=== PATIENT | female | born 1965 | race Caucasian/White ===

== ENCOUNTER → 2020-06-27 08:06 | Outpatient (BNVA) | payer OTHER, SELFPAY | PROVIDERS: PCP Nurse Practitioner Family; Referring Provider Nurse Practitioner Family; Visit Provider Physician Assistant | DX: E66.9 Obesity, unspecified (principal); Z68.31 Body mass index [BMI] 31.0-31.9, adult | CPT/HCPCS: 99214 ==

== ENCOUNTER 2020-08-07 12:25 | Outpatient (REF) | payer OTHER, SELFPAY | END 2020-08-07 12:26 | disposition home or self-care (01) | LOC: HO.LAB 12:25 | PROVIDERS: Visit Provider Internal Medicine | DX: Z20.828 Contact with and (suspected) exposure to other viral communicable diseases (principal) | CPT/HCPCS: C9803; U0003 ==

== ENCOUNTER 2020-09-24 08:46 | Outpatient (REF) | payer OTHER, SELFPAY | END 2020-09-24 08:47 | disposition home or self-care (01) | LOC: HO.LAB 08:46 | PROVIDERS: Visit Provider Internal Medicine | DX: Z20.822 Contact with and (suspected) exposure to COVID-19 (principal) | CPT/HCPCS: 36415; C9803; U0003 ==